=== PATIENT | female | born 2000 | race Caucasian/White ===

== ENCOUNTER 2021-03-20 19:57 | Inpatient (IN) | payer OTHER ==
[~2021-03-20] VITALS: Ht 155 cm; Wt 49.4 kg
--- NOTE | 2021-03-20 20:11 | ED Fall/Injury ---
General Stated Complaint: FALL/HIT HEAD Source: patient History of Present Illness Date Seen by Provider: Mar 20, 2021 Time Seen by Provider: 19:59 Initial Comments PT ARRIVES VIA EMS FROM [facility] TR[facility] PT WAS RUNNING AND FELL, AND LANDED ON HER UPPER ABDOMEN ONTO A STARTING BLOCK--OCCURRED AT 1830 WAS TOLD BY BYSTANDERS THAT SHE HIT HER HEAD, BUT DOES NOT KNOW FOR SURE--SHE DENIES LOSS OF CONSCIOUSNESS AND DENIES HEAD PAIN PT''S ONLY COMPLAINT IS DIFFUSE UPPER ABDOMINAL PAIN--WORSE ON RIGHT NO CHEST PAIN NO SHORTNESS OF BREATH NO NAUSEA/VOMITING/DIARRHEA NO NECK OR BACK PAIN NO PARESTHESIAS OR MOTOR DEFICITS NO HEADACHE NO VISION CHANGES NO DIZZINESS HAS MINOR ABRASION TO RIGHT UPPER ABDOMEN AND RIGHT PALM AND A LACERATION TO LEFT KNEE. DENIES PAIN TO ARMS/HANDS OR LEGS/FEET LAST TETANUS VACCINE > 5 YEARS AGO. NO CHRONIC ILLNESSES PT GOES TO S[place]OL [place], BUT IS FROM [place], [place]/ [place] PARENTS ARE HERE WITH PATIENT Allergies and Home Medications Allergies Coded Allergies: No Known Drug Allergies (Unverified , 03/20/21) Patient Home Medication List Home Medication List Reviewed: Yes Review of Systems Review of Systems Constitutional: no symptoms reported Eyes: No Symptoms Reported Ears, Nose, Mouth, Throat: no symptoms reported Respiratory: no symptoms reported Cardiovascular: no symptoms reported Gastrointestinal: see HPI, abdominal pain Genitourinary: no symptoms reported LMP: Mar 13, 2021 (ON OCP'S) Musculoskeletal: see HPI Skin: see HPI Psychiatric/Neurological: No Symptoms Reported Past Uyqmkjr-Yfpgto-Dhijxr Hx Patient Social History Tobacco Use?: Yes Tobacco type used: Cigarettes Smoking Status: Current Someday Smoker Use of E-Cig and/or Vaping dev: Yes Use of E-Cig and/or Vaping Alejandro: Current Someday User Substance use?: Yes Substance type: Marijuana Alcohol Use?: Yes Alcohol Frequency: Couple times a week Immunizations Up To Date Tetanus Booster (TDap): More than 5yrs Past Medical History Surgeries: No Respiratory: No Cardiac: No Neurological: No : No Reproductive Disorders: No Genitourinary: No Gastrointestinal: No Musculoskeletal: No Endocrine: No HEENT: No Cancer: No Psychosocial: No Integumentary: No Blood Disorders: No Physical Exam Vital Signs Vital Signs - First Documented 03/20/21 19:57 Temp 36.4 Pulse 105 Resp 20 B/P (MAP) 111/74 (86) Pulse Ox 100 O2 Delivery Room Air Capillary Refill : Height, Weight, BMI Height: '" Weight: lbs. oz. kg; BMI Method: General Appearance: WD/WN, no apparent distress HEENT: PERRL/EOMI, normal ENT inspection, TMs normal, pharynx normal, other (NO EXTERNAL EVIDENCE OF TRAUMA TO FACE OR HEAD) Neck: non-tender, full range of motion, supple, normal inspection Cardiovascular: normal peripheral pulses, regular rate, rhythm, no edema, no JVD, no murmur Respiratory: normal breath sounds, no respiratory distress, no accessory muscle use, other (TENDERNESS TO ANTERIOR LOWER RIBS BILATERALLY--RIGHT > LEFT; NO DE FORMITY, NO CREPITANCE OR SUB Q AIR) Gastrointestinal: normal bowel sounds, soft, no organomegaly, no pulsatile mass, tenderness (DIFFUSE UPPER ABDOMINAL TENDERNESS, MOST TENDER IN RUQ. MINOR ABRASION TO RUQ. NO SWELLING OR BRUISING. ) Back: normal inspection, no CVA tenderness, no vertebral tenderness Extremities: normal range of motion, non-tender, no pedal edema, no calf tenderness, normal capillary refill, other (MINOR ABRASIONS TO RIGHT PALM AND LEFT KNEE HAS A 4 CM LACERATION. NO ACTIVE BLEEDING. SOME DEBRIS IN KNEE LACERATION --C/W TRACK SURFACE MATERIAL. ) Neurologic/Psychiatric: sound assistant II-XII nml as tested, no motor/sensory deficits, alert, normal mood/affect, oriented x 3 Skin: normal color (PT IS BLACK), warm/dry, tattoos/piercings (PIERCINGS. ), other (ABRASIONS AND LACERATION NOTED ABOVE) Karla Coma Score Best Eye Response: (4) Open Spontaneously Best Verbal Response: (5) Oriented Best Motor Response: (6) Obeys Commands Karla Total: 15 Procedures/Interventions Other Wound Location LEFT KNEE Wound Length (cm): 4 Wound's Depth, Shape: irregular, sub Q, tendon (SMALL JAJA IN TENDON OVERLYING THE PATELLA. WITH 1 CM LACERATION TO TENDON SHEATH. UNDERLYING BONE APPEARS TO BE GROSSLY INTACT., AND THERE IS NO BONY TENDERNESS. NO BLEEDING FROM WOUND. FULL ROM. NO OBVIOUS LIGAMENT LAXITY. ) Wound Explored: contaminated (LARGE AMOUNT OF TRACK SURFACE MATERIAL) Irrigated w/ Saline (ccs): 500 Betadine Prep?: No (BETASEPT) Anesthesia: Lidocaine w/ Epi (2%) Staple Repair: Stapler 35W (#14) Suture: Vicryl Suture Size: 3-0 Layer Closure?: 2 Number Deep Layer Sutures: 4 Sterile Dressing Applied?: Yes Progress PROFUSELY IRRIGATED WITH STERILE SALINE AND BETASEPT, THEN AGAIN WITH PLAIN SALINE ALL VISIBLE FOREIGN MATERIAL REMOVED. DEEP LAYERS, INCLUDING TENDON SHEATH CLOSED WITH #4 SUTURES OF 3-0 VICRYL SKIN CLOSED WITH #14 STERLING DRESSED WITH BACTROBAN AND STERILE DRESSING. PT TOLERATED WELL. Progress/Results/Core Measures Results/Orders Lab Results Laboratory Tests Test 03/20/21 20:04 03/20/21 20:30 Range/Units White Blood Count 8.9 4.3-11.0 10^3/uL Red Blood Count 4.09 3.80-5.11 10^6/uL Hemoglobin 12.6 11.5-16.0 g/dL Hematocrit 38 35-52 % Mean Corpuscular Volume 93 80-99 fL Mean Corpuscular Hemoglobin 31 25-34 pg Mean Corpuscular Hemoglobin Concent 33 32-36 g/dL Red Cell Distribution Width 13.1 10.0-14.5 % Platelet Count 396 130-400 10^3/uL Mean Platelet Volume 9.9 9.0-12.2 fL Immature Granulocyte % (Auto) 1 % Neutrophils (%) (Auto) 76 H 42-75 % Lymphocytes (%) (Auto) 18 12-44 % Monocytes (%) (Auto) 6 0-12 % Eosinophils (%) (Auto) 0 0-10 % Basophils (%) (Auto) 0 0-10 % Neutrophils # (Auto) 6.8 1.8-7.8 10^3/uL Lymphocytes # (Auto) 1.6 1.0-4.0 10^3/uL Monocytes # (Auto) 0.5 0.0-1.0 10^3/uL Eosinophils # (Auto) 0.0 0.0-0.3 10^3/uL Basophils # (Auto) 0.0 0.0-0.1 10^3/uL Immature Granulocyte # (Auto) 0.1 0.0-0.1 10^3/uL Sodium Level 139 135-145 MMOL/L Potassium Level 3.9 3.6-5.0 MMOL/L Chloride Level 107 98-107 MMOL/L Carbon Dioxide Level 12 L 21-32 MMOL/L Anion Gap 20 H 5-14 MMOL/L Blood Urea Nitrogen 11 7-18 MG/DL Creatinine 1.05 0.60-1.30 MG/DL Estimat Glomerular Filtration Rate 78 BUN/Creatinine Ratio 10 Glucose Level 138 H 70-105 MG/DL Calcium Level 9.2 8.5-10.1 MG/DL Corrected Calcium 9.2 8.5-10.1 MG/DL Total Bilirubin 0.3 0.1-1.0 MG/DL Aspartate Amino Transf (AST/SGOT) 62 H 5-34 U/L Alanine Aminotransferase (ALT/SGPT) 57 H 0-55 U/L Alkaline Phosphatase 72 40-136 U/L Total Protein 8.2 6.4-8.2 GM/DL Albumin 4.0 3.2-4.5 GM/DL Amylase Level 64 25-125 U/L Lipase 14 8-78 U/L Serum Test, Qualitative NEGATIVE NEGATIVE Urine Color YELLOW Urine Clarity CLEAR Urine pH 6.0 5-9 Urine Specific [place] >=1.030 1.016-1.022 Urine Protein 1+ H NEGATIVE Urine Glucose (UA) NEGATIVE NEGATIVE Urine Ketones NEGATIVE NEGATIVE Urine Nitrite NEGATIVE NEGATIVE Urine Bilirubin NEGATIVE NEGATIVE Urine Urobilinogen 0.2 < = 1.0 MG/DL Urine Leukocyte Esterase NEGATIVE NEGATIVE Urine RBC (Auto) TRACE-I H NEGATIVE Urine RBC RARE /HPF Urine WBC NONE /HPF Urine Squamous Epithelial Cells 2-5 /HPF Urine Crystals NONE /LPF Urine Bacteria TRACE /HPF Urine Casts NONE /LPF Urine Mucus SMALL H /LPF Urine Culture Indicated NO My Orders Orders - AIDA SHETH DO Ed Iv/Invasive Line Start (03/20/21 20:03) Monitor-Rhythm Ecg Trace Only (03/20/21 20:03) Amylase (03/20/21 20:03) Cbc With Automated Diff (03/20/21 20:03) Comprehensive Metabolic Panel (03/20/21 20:03) Hcg,Qualitative Serum (03/20/21 20:03) Lipase (03/20/21 20:03) Ua Culture If Indicated (03/20/21 20:03) Dipht,Pertuss(Acell),Tet Adult (Boostrix (03/20/21 20:15) Ct Chest/Abdomen/Pelvis W (03/20/21 20:03) Iohexol Injection (Omnipaque 350 Mg/Ml 1 (03/20/21 21:00) Received Contrast (Hold Metformin- Contr (03/20/21 21:00) Ns (Ivpb) (Sodium Chloride 0.9% Ivpb Bag (03/20/21 21:00) Fentanyl Inj (Sublimaze Injection) (03/20/21 21:30) Lidocaine/Epi 2% 1:100,000 (Xylocaine/Ep (03/20/21 22:15) Medications Given in ED Current Medications Medications Dose Ordered Sig/Adriano Route Start Time Stop Time Status Last Admin Dose Admin Diphtheria/ Tetanus/Acell Pertussis 0.5 ml ONCE ONCE IM 03/20/21 20:15 03/20/21 20:16 DC 03/20/21 20:27 0.5 ML Fentanyl Citrate 50 mcg ONCE ONCE IVP 03/20/21 21:30 03/20/21 21:34 DC 03/20/21 21:23 50 MCG Iohexol 100 ml ONCE ONCE IV 03/20/21 21:00 03/20/21 21:01 DC 03/20/21 21:00 66 ML Lidocaine/ Epinephrine 20 ml ONCE ONCE INJ 03/20/21 22:15 03/20/21 22:16 DC 03/20/21 22:10 20 ML Sodium Chloride 100 ml ONCE ONCE IV 03/20/21 21:00 03/20/21 21:01 DC 03/20/21 21:00 80 ML Vital Signs/I&O 03/20/21 19:57 Temp 36.4 Pulse 105 Resp 20 B/P (MAP) 111/74 (86) Pulse Ox 100 O2 Delivery Room Air Progress Progress Note : Progress Note PT CRYING IN PAIN TO RUQ ON RETURN FROM CT. GIVEN FENTANYL FOR PAIN WITH MUCH IMPROVEMENT UNEVENTFUL ER STAY VITALS STABLE--NO HYPOTENSION OR TACHYCARDIA OR HYPOXIA Diagnostic Imaging Comments CT CHEST/ABDOMEN/PELVIS--PER RADIOLOGIST VIA PHONE AT 1458 FINDINGS: Thyroid: The visualized thyroid gland is normal. Mediastinum: Heart size is normal without significant pericardial effusion. The aorta is normal in caliber. No suspicious lymphadenopathy. Lungs and airways: The lungs are clear without consolidation, pleural effusion or pneumothorax. The airways are normal. Solid organs: Ill-defined area of hypoattenuation within the inferior right hepatic lobe measuring up to 2.0 x 3.2 cm (series 2 image 30). Appearance is similar on the delayed images. The gallbladder is normal. There is no biliary ductal dilation. Pancreas is normal. Spleen is normal. Adrenal glands are normal. The kidneys are normal without hydronephrosis. Bowel: The stomach and small bowel are normal without obstruction. The colon is unremarkable. No findings of acute appendicitis Peritoneum: There is no intraperitoneal free fluid or free air. No suspicious lymphadenopathy. Vasculature: Normal without aneurysm. Musculoskeletal: No suspicious osseous lesion or compression fracture. Pelvis: The uterus and adnexa are normal. The urinary bladder is normal. IMPRESSION: 1. No acute abnormality in the chest, abdomen, or pelvis. 2. Indeterminate right hepatic lesion measuring 2.0 x 3.2 cm. Consider further evaluation with dedicated MRI of the liver with Gadavist IV contrast. Of note, no intraperitoneal hemorrhage is seen to suggest or confirm hepatic laceration. Recommend appropriate follow-up and evaluation of laboratory values if there is concern for hepatic laceration. CXR--NO ACUTE PROCESS, PENDING RADIOLOGIST REVIEW XRAYS LEFT KNEE--NO ACUTE BONY INJURY, PENDING RADIOLOGIST REVIEW Reviewed: Reviewed by Me, Discussed w/Radiologist Departure Communication (Admissions) 2129--SPOKE WITH DR. KIRBY, HE WILL REVIEW FILMS AND CALL BACK. HE WILL ALSO DISCUSS WITH RADIOLOGIST 2153--CALLED DR. KIRBY, WILL CALL BACK. [id number]--SPOKE WITH DR. KIRBY, HE HAS DISCUSSED WITH DR. CASTELLANOS. WILL ADMIT PT TO DR. CASTELLANOS, WHO WILL SEE PT IN AM. Impression Primary Impression: Fall injury while running Additional Impressions: Liver laceration Complex left knee laceration Abrasion of palm of right hand Hzlzlxdlom-[id number]-pflrdrt (DPT) vaccination administered at current visit Disposition: ADMITTED INPATIENT Condition: Stable Admissions Decision to Admit Reason: Admit from ER (Trauma) Decision to Admit/Date: Mar 20, 2021 Time/Decision to Admit Time: 22:15 Departure-Patient Inst. Referrals: NO,LOCAL PHYSICIAN (PCP/Family) Primary Care Physician AIDA SHETH DO Mar 20, 2021 20:11
[2021-03-20 20:13] LABS: BASOPHILS % (AUTO) 0 % (0-10); EOSINOPHILS % (AUTO) 0 % (0-10); HEMATOCRIT 38 % (35-52); HEMOGLOBIN 12.6 g/dL (11.5-16.0); LYMPHOCYTES # (AUTO) 1.6 10^3/uL (1.0-4.0); LYMPHOCYTES % (AUTO) 18 % (12-44); MEAN CORPUSCULAR HEMOGLOBIN 31 pg (25-34); MEAN CORPUSCULAR HGB CONC 33 g/dL (32-36); MEAN CORPUSCULAR VOLUME 93 fL (80-99); MEAN PLATELET VOLUME 9.9 fL (9.0-12.2); MONOCYTES # (AUTO) 0.5 10^3/uL (0.0-1.0); MONOCYTES % (AUTO) 6 % (0-12); NEUTROPHILS # (AUTO) 6.8 10^3/uL (1.8-7.8); NEUTROPHILS % (AUTO) 76 % (42-75); PLATELET COUNT 396 10^3/uL (130-400); WHITE BLOOD COUNT 8.9 10^3/uL (4.3-11.0)
[2021-03-20] MEDS ORDERED: TETANUS,DIPTH,PERTUSS P/F (BOOSTRIX) 0.5 ML VIAL IM ONE (20:15)
[2021-03-20 20:33] LABS: BILIRUBIN,TOTAL 0.3 MG/DL (0.1-1.0); CALCIUM 9.2 MG/DL (8.5-10.1); CREATININE SERUM 1.05 MG/DL (0.60-1.30); POTASSIUM 3.9 MMOL/L (3.6-5.0); TOTAL PROTEIN 8.2 GM/DL (6.4-8.2)
[2021-03-20 20:37] LABS: BILIRUBIN,URINE NEGATIVE (NEGATIVE); CLARITY,URINE CLEAR; COLOR,URINE YELLOW; GLUCOSE, URINE (UA) NEGATIVE (NEGATIVE); KETONES,URINE NEGATIVE (NEGATIVE); LEUKOCYTE ESTERASE ,URINE NEGATIVE (NEGATIVE); NITRITE,URINE NEGATIVE (NEGATIVE); PROTEIN,URINE 1+ (NEGATIVE)
[2021-03-20 20:43] LABS: BACTERIA,URINE TRACE /HPF; RBC,URINE RARE /HPF
[2021-03-20] MEDS ORDERED: NS 100 ML (IVPB) BAG IV ONE (21:00)
[2021-03-20] MEDS ORDERED: HOLD METFORMIN - RECEIVED CONTRAST 20 ML VIAL IV SCH (21:00)
[2021-03-20] MEDS ORDERED: IOHEXOL 350 MG/ML 100 ML (OMNIPAQUE 350) VIAL IV ONE (21:00)
--- NOTE | 2021-03-20 21:20 | Diagnostic Imaging Report ---
EXAMINATION: CT chest, abdomen and pelvis with intravenous contrast. TECHNIQUE: Multiple contiguous axial images were obtained through the chest, abdomen and pelvis after the uneventful administration of intravenous contrast. All CT scans use one or more of the following dose optimizing techniques: automated exposure control, MA and/or KvP adjustment based on patient size and exam type or iterative reconstruction. HISTORY: Chest and abdomen pain after fall. COMPARISON: None available. FINDINGS: Thyroid: The visualized thyroid gland is normal. Mediastinum: Heart size is normal without significant pericardial effusion. The aorta is normal in caliber. No suspicious lymphadenopathy. Lungs and airways: The lungs are clear without consolidation, pleural effusion or pneumothorax. The airways are normal. Solid organs: Ill-defined area of hypoattenuation within the inferior right hepatic lobe measuring up to 2.0 x 3.2 cm (series 2 image 30). Appearance is similar on the delayed images. The gallbladder is normal. There is no biliary ductal dilation. Pancreas is normal. Spleen is normal. Adrenal glands are normal. The kidneys are normal without hydronephrosis. Bowel: The stomach and small bowel are normal without obstruction. The colon is unremarkable. No findings of acute appendicitis Peritoneum: There is no intraperitoneal free fluid or free air. No suspicious lymphadenopathy. Vasculature: Normal without aneurysm. Musculoskeletal: No suspicious osseous lesion or compression fracture. Pelvis: The uterus and adnexa are normal. The urinary bladder is normal. IMPRESSION: 1. No acute abnormality in the chest, abdomen, or pelvis. 2. Indeterminate right hepatic lesion measuring 2.0 x 3.2 cm. Consider further evaluation with dedicated MRI of the liver with Gadavist IV contrast. Of note, no intraperitoneal hemorrhage is seen to suggest or confirm hepatic laceration. Recommend appropriate follow-up and evaluation of laboratory values if there is concern for hepatic laceration. Findings communicated with Dr. Pagan by Dr. Juan Antonio Mckeon at 9:14 PM on 03/20/2021. Dictated by: Dictated on workstation # [id number]
[2021-03-20] MEDS ORDERED: fentaNYL INJ 100 MCG/2 ML AMP IVP ONE (21:30)
[2021-03-20] MEDS ORDERED: LIDOCAINE/EPI 2% 1:100,00 (XYLOCAINE) 20 ML VIAL INJ ONE (22:15)
[2021-03-20] MEDS ORDERED: ceFAZolin INJECTION 1,000 MG in NS (IVPB) 50 ML IV STA (22:47)
[2021-03-20] MEDS ORDERED: MUPIROCIN 2% OINT 22 GM (BACTROBAN) TUBE ONE (23:10)
[2021-03-20] MEDS ORDERED: ACETAMINOPHEN 500 MG TAB (TYLENOL) PO ONE (23:15)
[2021-03-20] MEDS: MUPIROCIN 2% OINT 22 GM (BACTROBAN) TUBE TOP SCH (23:16)
[2021-03-20 23:42] VITALS: BP 118/58
[2021-03-21] MEDS: D5 1/2 NS W/KCL 20 MEQ/L 1,000 ML IV SCH ×4 (00:07→20:36)
[2021-03-21 00:23] LABS: HEMOGLOBIN 11.6 g/dL (11.5-16.0)
[2021-03-21 04:06] VITALS: BP 106/68
[2021-03-21] MEDS: ceFAZolin INJECTION 1,000 MG VIAL IV SCH ×4 (04:42→21:13)
[2021-03-21] MEDS: fentaNYL INJ 100 MCG/2 ML AMP IV PRN ×4 (06:06→20:36)
[2021-03-21 06:15] LABS: BASOPHILS % (AUTO) 0 % (0-10); EOSINOPHILS % (AUTO) 0 % (0-10); HEMATOCRIT 32 % (35-52); LYMPHOCYTES # (AUTO) 4.1 10^3/uL (1.0-4.0); LYMPHOCYTES % (AUTO) 40 % (12-44); MEAN CORPUSCULAR HEMOGLOBIN 31 pg (25-34); MEAN CORPUSCULAR HGB CONC 34 g/dL (32-36); MEAN CORPUSCULAR VOLUME 91 fL (80-99); MEAN PLATELET VOLUME 10.2 fL (9.0-12.2); MONOCYTES # (AUTO) 0.8 10^3/uL (0.0-1.0); MONOCYTES % (AUTO) 7 % (0-12); NEUTROPHILS # (AUTO) 5.3 10^3/uL (1.8-7.8); NEUTROPHILS % (AUTO) 52 % (42-75); PLATELET COUNT 326 10^3/uL (130-400); WHITE BLOOD COUNT 10.3 10^3/uL (4.3-11.0)
[2021-03-21 06:27] LABS: POTASSIUM 3.1 MMOL/L (3.6-5.0)
[2021-03-21 06:29] LABS: CALCIUM 8.1 MG/DL (8.5-10.1)
[2021-03-21 06:33] LABS: CREATININE SERUM 0.78 MG/DL (0.60-1.30)
[2021-03-21] MEDS: HYDROcodone/APAP 5 MG/325 MG (LORTAB) TAB PO PRN ×3 (06:49→17:27)
--- NOTE | 2021-03-21 06:49 | Diagnostic Imaging Report ---
CLINICAL INDICATIONS: Patient fell while running track. EXAM: X-ray left knee, 3 views. COMPARISON: None. FINDINGS: There is no acute fracture or dislocation. There is prepatellar soft tissue swelling. Skin jaya are seen overlying the anterior aspect of the knee. There is no knee effusion. IMPRESSION: 1: There is no acute fracture or dislocation. 2: There is soft tissue swelling in the prepatellar region. Dictated by: Dictated on workstation # [id number]
--- NOTE | 2021-03-21 07:33 | Diagnostic Imaging Report ---
CLINICAL INDICATIONS: Patient fell while running track. EXAM: Portable chest x-ray upright view. COMPARISON: None. FINDINGS: Lungs/pleura: Lungs are clear. There is no pneumothorax. There is no pleural effusion. Mediastinum: Unremarkable. Pulmonary vasculature: Unremarkable. Heart: Unremarkable. Bones/extrathoracic soft tissue: Unremarkable. IMPRESSION: There is no radiographic evidence of acute cardiopulmonary process. Dictated by: Dictated on workstation # [id number]
[2021-03-21 08:20] VITALS: BP 116/75
--- NOTE | 2021-03-21 10:42 | Consultation - Surgery ---
BOB BARBOSA 03/21/21 1042: History of Present Illness History of Present Illness Patient Consulted On(bharathi/time) 03/21/21 10:37 Date Seen by Provider: Mar 21, 2021 Time Seen by Provider: 10:15 History of Present Illness 21yo female presents to the ER after running on the track field yesterday afternoon and tripped over the median which caused her to fall on her stomach and face. She doesn't recall hitting her head, but bystanders report that she hit her head. She denies any symptoms including syncope or LOC before the fall took place. She rates the pain of both her left knee and stomach as a 0\10, but 6 or 7/10 for her stomach and 9/10 for her left knee before being started on pain medications. Resting makes her pain better, and moving makes it worse. When the pain first started she described her RUQ as a stabbing pain that was constant and denied any other symptoms or radiation. Her knee pain is described as a burning pain that is constant and extends above the site of injury but not below the site. She denies this every happening to her before, N/V, fever, or LOC. She also reports having a headache for 3 hours last night that went away with tylenol and it has not returned. CT Scan of Chest/Abdomin/Pelvis: Indeterminate right hepatic lesion measuring 2.0 x 3.2 cm. CXR: There is no radiographic evidence of acute cardiopulmonary process. Left Knee x ray: There is no acute fracture or dislocation. There is soft tissue swelling in the prepatellar region. Allergies and Home Medications Allergies Coded Allergies: No Known Drug Allergies (Unverified , 03/20/21) Past Rdfnrup-Ugtfuo-Xgfqhu Hx Patient Social History Smoking Status: Never a Smoker Alcohol Use?: No Substance type: Marijuana (twice a week for a year, last use one month ago) Have you traveled recently?: Yes Immunizations Up To Date Tetanus Booster (TDap): More than 5yrs Surgeries History of Surgeries: No Respiratory History of Respiratory Disorde: No Cardiovascular History of Cardiac Disorders: No Neurological History of Neurological Disord: No Reproductive System : No Hx Reproductive Disorders: No Genitourinary History of Genitourinary Disor: No Gastrointestinal History of Gastrointestinal Di: No Musculoskeletal History of Musculoskeletal Dis: No Endocrine History of Endocrine Disorders: No HEENT History of HEENT Disorders: No Cancer History of Cancer: No Psychosocial History of Psychiatric Problem: No Integumentary History of Skin or Integumenta: No Blood Transfusions History of Blood Disorders: No Family Medical History Significant Family History: Cancer (grandpather had breast cancer ) Review of Systems-General Constitutional: No dizziness, No fever; weakness EENTM: No blurred vision, No double vision, No vision loss Respiratory: No short of breath, No wheezing Cardiovascular: No chest pain, No palpitations Gastrointestinal: RUQ; No constipation, No diarrhea, No nausea, No vomiting Genitourinary: No dysuria, No hematuria Musculoskeletal: back pain; No neck pain Psychiatric/Neurological: Denies Anxiety, Denies Depressed Physical Exam-General Problems Physical Exam Vital Signs Vital Signs - First Documented 03/20/21 19:57 Temp 36.4 Pulse 105 Resp 20 B/P (MAP) 111/74 (86) Pulse Ox 100 O2 Delivery Room Air Capillary Refill : Less Than 3 Seconds General Appearance: no apparent distress Respiratory: lungs clear, no respiratory distress, no accessory muscle use Cardiovascular: regular rate, rhythm, no murmur Gastrointestinal: normal bowel sounds, tenderness (RUQ), other (darkening of skin on RUQ due to site of trauma ) Extremities: no pedal edema, other (left knee is wrapped from injury ) Neurologic/Psychiatric: alert, oriented x 3 Skin: warm/dry, other (LE B/L has no edema with normal pulses ) Lymphatic: no adenopathy Data Review Labs Laboratory Tests 03/20/21 20:04: White Blood Count 8.9, Red Blood Count 4.09, Hemoglobin 12.6, Hematocrit 38, Mean Corpuscular Volume 93, Mean Corpuscular Hemoglobin 31, Mean Corpuscular Hemoglobin Concent 33, Red Cell Distribution Width 13.1, Platelet Count 396, Mean Platelet Volume 9.9, Immature Granulocyte % (Auto) 1, Neutrophils (%) (Auto) 76H, Lymphocytes (%) (Auto) 18, Monocytes (%) (Auto) 6, Eosinophils (%) (Auto) 0, Basophils (%) (Auto) 0, Neutrophils # (Auto) 6.8, Lymphocytes # (Auto) 1.6, Monocytes # (Auto) 0.5, Eosinophils # (Auto) 0.0, Basophils # (Auto) 0.0, Immature Granulocyte # (Auto) 0.1, Sodium Level 139, Potassium Level 3.9, Chloride Level 107, Carbon Dioxide Level 12L, Anion Gap 20H, Blood Urea Nitrogen 11, Creatinine 1.05, Estimat Glomerular Filtration Rate 78, BUN/Creatinine Ratio 10, Glucose Level 138H, Calcium Level 9.2, Corrected Calcium 9.2, Total Bilirubin 0.3, Aspartate Amino Transf (AST/SGOT) 62H, Alanine Aminotransferase (ALT/SGPT) 57H, Alkaline Phosphatase 72, Total Protein 8.2, Albumin 4.0, Amylase Level 64, Lipase 14, Serum Test, Qualitative NEGATIVE 03/20/21 20:30: Urine Color YELLOW, Urine Clarity CLEAR, Urine pH 6.0, Urine Specific [place] >=1.030, Urine Protein 1+H, Urine Glucose (UA) NEGATIVE, Urine Ketones NEGATIVE, Urine Nitrite NEGATIVE, Urine Bilirubin NEGATIVE, Urine Urobilinogen 0.2, Urine Leukocyte Esterase NEGATIVE, Urine RBC (Auto) TRACE-IH, Urine RBC RARE, Urine WBC NONE, Urine Squamous Epithelial Cells 2-5, Urine Crystals NONE, Urine Bacteria TRACE, Urine Casts NONE, Urine Mucus SMALLH, Urine Culture Indicated NO 03/21/21 00:15: Hemoglobin 11.6, Hematocrit 34L 03/21/21 05:35: White Blood Count 10.3, Red Blood Count 3.51L, Hemoglobin 11.0L, Hematocrit 32L, Mean Corpuscular Volume 91, Mean Corpuscular Hemoglobin 31, Mean Corpuscular Hemoglobin Concent 34, Red Cell Distribution Width 13.0, Platelet Count 326, Mean Platelet Volume 10.2, Immature Granulocyte % (Auto) 0, Neutrophils (%) (Auto) 52, Lymphocytes (%) (Auto) 40, Monocytes (%) (Auto) 7, Eosinophils (%) (Auto) 0, Basophils (%) (Auto) 0, Neutrophils # (Auto) 5.3, Lymphocytes # (Auto) 4.1H, Monocytes # (Auto) 0.8, Eosinophils # (Auto) 0.0, Basophils # (Auto) 0.0, Immature Granulocyte # (Auto) 0.0, Sodium Level 136, Potassium Level 3.1L, Chloride Level 106, Carbon Dioxide Level 20L, Anion Gap 10, Blood Urea Nitrogen 8, Creatinine 0.78, Estimat Glomerular Filtration Rate 111, BUN/Creatinine Ratio 10, Glucose Level 108H, Calcium Level 8.1L 03/21/21 08:00: Hemoglobin 12.0, Hematocrit 36 Assessment/Plan Assessment/Plan Assessment/Plan RUQ Pain Continue IV fluids, pain medications, repeat CBC with diff and liver panel as AST and ALT are elevated at 62 and 57 respectively Left knee Pain Consult Orthopedic Surgery Headache Resolved with tylenol, monitor for signs of concussion EDEN WANG DO 03/21/21 1308: History of Present Illness History of Present Illness History of Present Illness HISTORY AND PHYSICAL CC:fall Patient is a 21 year old female. Running in [employer] when tripped over a rail striking right upper abdomen on blocks. She had left knee laceration and right hand abrasion. Patient may have hit her head on ground, but had no loss of consciousness. She has pain in the left knee which she states is where all her pain is now. Before pain medication she was rating it at a 9/10. Currently pain is undercontrol, but unable to move it due to pain. She is not having any abdominal pain at this time. Her hgb is stable. She had x rays of chest which was normal. Left knee x rays normal. Ct chest abdomen and pelvis with indeterminate right hepatic lesion. Allergies and Home Medications Allergies Coded Allergies: No Known Drug Allergies (Unverified , 03/20/21) Patient Home Medication List Home Medication List Reviewed: Yes Past Wekzuoq-Qoaytp-Tuelaj Hx Patient Social History Smoking Status: Never a Smoker Substance type: Marijuana (twice a week for a year, last use one month ago) Surgeries History of Surgeries: No Respiratory History of Respiratory Disorde: No Cardiovascular History of Cardiac Disorders: No Neurological History of Neurological Disord: No Reproductive System : No Genitourinary History of Genitourinary Disor: No Gastrointestinal History of Gastrointestinal Di: No Musculoskeletal History of Musculoskeletal Dis: No Endocrine History of Endocrine Disorders: No HEENT History of HEENT Disorders: No Cancer History of Cancer: No Integumentary History of Skin or Integumenta: No Blood Transfusions History of Blood Disorders: No Reviewed Nursing Assessment Reviewed/Agree w Nursing PMH: Yes Family Medical History Significant Family History: Cancer (grandmother had breast cancer ) Review of Systems-General Constitutional: No dizziness, No fever; weakness (left leg (knee)) EENTM: No blurred vision, No double vision, No vision loss Respiratory: No short of breath, No wheezing Cardiovascular: No palpitations Gastrointestinal: RUQ, abdominal pain (RUQ); No constipation, No diarrhea, No nausea, No vomiting Genitourinary: No dysuria, No hematuria Musculoskeletal: back pain; No neck pain Skin: other (left knee laceration/right hand abrasion) Psychiatric/Neurological: Denies Anxiety, Denies Depressed, Denies Emotional Problems All Other Systems Reviewed Negative Unless Noted: Yes (Negative excepted noted.) Physical Exam-General Problems Physical Exam General Appearance: WD/WN, no apparent distress HEENT: PERRL/EOMI, normal ENT inspection Neck: non-tender, supple Respiratory: chest non-tender, no respiratory distress, no accessory muscle use Cardiovascular: regular rate, rhythm, no JVD Gastrointestinal: non tender, soft, tenderness (RUQ minimal), other (darkening of skin on RUQ due to site of trauma ) Rectal: deferred Back: normal inspection, no CVA tenderness Extremities: no pedal edema, other (left knee laceration, difficulty moving left knee, has weakness secondary to pain ) Neurologic/Psychiatric: alert, normal mood/affect, oriented x 3 Skin: warm/dry, other (LE B/L has no edema with normal pulses ) Lymphatic: no adenopathy Assessment/Plan Assessment/Plan Assessment/Plan fall from standing height right hepatic lesion, indeterminate cause ? liver laceration Left knee laceration and pain Right hand abrasion Has been NPO, Hgb serially checked and stable. Bedrest, will start on clears. Will get MRI of the liver with Gadavist IV contrast tomorrow (not available today) Pain control Follow hgb. Ortho consulted Inpatient Admission: Patient will be here 2 midnight. Needs monitored for hemodynamic stability and further radiological studies for liver lesion. Supervisory-Addendum Brief Verification & Attestation Participated in pt care: history, MDM, physical Personally performed: exam, history, MDM, supervision of care Care discussed with: Medical Student Procedures: n/a Results interpretation: Verified all documentation Verification and Attestation of Medical Student E/M Service A medical student performed and documented this service in my presence. I reviewed and verified all information documented by the medical student and made modifications to such information, when appropriate. I personally performed the physical exam and medical decision making. Eden Wang, Mar 21, 2021,13:19 BOB BARBOSA Mar 21, 2021 10:42 EDEN WANG DO Mar 21, 2021 13:08
[2021-03-21 11:20] VITALS: BP 127/81
[2021-03-21 12:15] LABS: HEMOGLOBIN 11.1 g/dL (11.5-16.0)
[2021-03-21 16:00] VITALS: BP 115/71
[2021-03-21 17:07] LABS: HEMOGLOBIN 10.4 g/dL (11.5-16.0)
[2021-03-21 19:56] VITALS: BP 113/76
[2021-03-21 20:30] LABS: HEMOGLOBIN 10.2 g/dL (11.5-16.0)
[2021-03-21] MEDS: MUPIROCIN 2% OINT 22 GM (BACTROBAN) TUBE TOP SCH (20:37)
[2021-03-22] VITALS: BP 128/77
[2021-03-22] MEDS: HYDROcodone/APAP 5 MG/325 MG (LORTAB) TAB PO PRN ×3 (00:08→12:24)
[2021-03-22 00:23] LABS: HEMOGLOBIN 10.3 g/dL (11.5-16.0)
[2021-03-22 04:00] VITALS: BP 120/60
[2021-03-22] MEDS: D5 1/2 NS W/KCL 20 MEQ/L 1,000 ML IV SCH ×3 (04:23→10:37)
[2021-03-22] MEDS: ceFAZolin INJECTION 1,000 MG VIAL IV SCH ×2 (04:23→10:37)
[2021-03-22 04:32] LABS: HEMOGLOBIN 10.2 g/dL (11.5-16.0)
--- NOTE | 2021-03-22 06:22 | Progress Note - Surgery ---
MARIA M UMANZOR 03/22/21 0622: Subjective Date Seen by a Provider: Mar 22, 2021 Time Seen by a Provider: 06:00 Subjective/Events-last exam Pt reports 6/10 pain in L knee, but no abdominal pain today. Pt does report new pain along spine in central back and an intermittent WOLFF (4/10). Pt's R palm abrasion was freshly bandaged. Pt currently NPO. Last bm was Monday. Pt denies CP, SOB, fever, and N/V at this time. Review of Systems General: No Chills; Fatigue HEENT: Head Aches (intermittent 4/10) Pulmonary: No Dyspnea, No Cough Cardiovascular: No: Chest Pain, Palpitations Gastrointestinal: No: Nausea, Vomiting Genitourinary: No Dysuria, No Incontinence Musculoskeletal: back pain (central back along spine), leg pain (L knee) Neurological: No: Weakness, Change in speech Focused Exam Respiratory: Lungs Clear, Normal Breath Sounds, No Respiratory Distress Cardiovascular: Regular Rate, Rhythm, No Murmur Peripheral Pulses: 2+ Radial Pulses (R), 2+ Radial Pulses (L) Skin: normal color, warm/dry Objective Exam Vital Signs Date Time Temp Pulse Resp B/P (MAP) Pulse Ox O2 Delivery O2 Flow Rate FiO2 03/22/21 04:00 36.8 77 18 120/60 (80) 100 Room Air 03/22/21 01:00 78 03/22/21 00:00 37.7 71 17 128/77 (94) 100 Room Air 03/21/21 20:36 Room Air 03/21/21 19:56 36.8 73 18 113/76 (88) 100 Room Air 03/21/21 19:00 80 03/21/21 16:00 36.6 85 20 115/71 (86) 100 Room Air 03/21/21 13:00 76 03/21/21 11:20 37.3 80 18 127/81 (96) 100 Room Air 03/21/21 08:20 37.2 72 16 116/75 (89) 97 Room Air 03/21/21 07:00 90 I & O 03/22/21 07:00 Intake Total 1120 ml Balance 1120 ml Capillary Refill : Less Than 3 Seconds General Appearance: No Apparent Distress, WD/WN HEENT: PERRL/EOMI Neck: Normal Inspection Respiratory: Lungs Clear, Normal Breath Sounds, No Respiratory Distress Cardiovascular: Regular Rate, Rhythm, No Murmur Peripheral Pulses: 2+ Dorsalis Pedis (R), 2+ Left Dors-Pedis (L), 2+ Radial P ulses (R), 2+ Radial Pulses (L) Gastrointestinal: non tender, soft, other (darkening of skin on RUQ due to site of trauma; small abrasion) Extremity: No Pedal Edema Neurologic/Psychiatric: Alert, Oriented x3, Normal Mood/Affect Skin: Normal Color, Warm/Dry Results Lab Laboratory Tests 03/21/21 08:00: Hemoglobin 12.0, Hematocrit 36 03/21/21 12:05: Hemoglobin 11.1L, Hematocrit 33L 03/21/21 16:54: Hemoglobin 10.4L, Hematocrit 31L 03/21/21 20:09: Hemoglobin 10.2L, Hematocrit 30L 03/22/21 00:17: Hemoglobin 10.3L, Hematocrit 31L 03/22/21 04:05: Hemoglobin 10.2L, Hematocrit 30L Assessment/Plan Assessment/Plan Assessment/Plan Fall from standing height Right hepatic lesion, indeterminate cause- liver laceration Left knee laceration and pain Right hand abrasion Back pain WOLFF NPO; MRI w/ Gadavist IV contrast today Pain control Follow hgb- serially checked and stable Ortho consulted Monitor for concussion EDEN Gómez DO 03/22/21 1325: Subjective Subjective/Events-last exam Patient with left knee pain. States 6/10 pain. Now able to move it much better. No headache at this time. Ortho has seen and given recommendations which she understood. Patient for MRI today. Patient hgb stable. Denies any new complaints. No abdominal pain. Denies n/v fever sweats chills shortness of breath or chest pain. Objective Exam General Appearance: No Apparent Distress, WD/WN HEENT: PERRL/EOMI Neck: Normal Inspection, Non Tender Respiratory: Chest Non Tender, No Accessory Muscle Use, No Respiratory Distress Cardiovascular: Regular Rate, Rhythm, No JVD Gastrointestinal: non tender, soft, other (darkening of skin on RUQ due to site of trauma; small abrasion) Extremity: Other (laceration left knee with jaya, no signs of infection, abrasion right hand. Left leg with good range of motion today.) Neurologic/Psychiatric: Alert, Oriented x3, Normal Mood/Affect Skin: Normal Color, Warm/Dry Lymphatic: No Adenopathy Assessment/Plan Assessment/Plan Assessment/Plan Right hepatic lesion, indeterminate cause- liver laceration Left knee laceration and pain Right hand abrasion Back pain WOLFF MRI w/ Gadavist IV contrast today- consistent with stable liver laceration Pain control Follow hgb- serially checked and stable Ortho consulted who gave recommendations and patient understands. Patient will need repeat liver imaging in 1-2 weeks or earlier if becomes symptomatic. Can be discharged today with follow up with per physician back home. Supervisory-Addendum Brief Verification & Attestation Participated in pt care: history, MDM, physical Personally performed: exam, history, MDM, supervision of care Care discussed with: Medical Student Procedures: n/a Results interpretation: Verified all documentation Verification and Attestation of Medical Student E/M Service A medical student performed and documented this service in my presence. I reviewed and verified all information documented by the medical student and made modifications to such information, when appropriate. I personally performed the physical exam and medical decision making. Eden Castellanos, Mar 22, 2021,13:25 MARIA M UMANZOR Mar 22, 2021 06:22 EDEN CASTELLANOS DO Mar 22, 2021 13:25
[2021-03-22 07:55] VITALS: BP 116/57
--- NOTE | 2021-03-22 07:57 | Progress Note ---
Standard Progress Note Progress Notes/Assess & Plan Date Seen by a Provider: Mar 22, 2021 Time Seen by a Provider: 07:57 Progress/Assessment & Plan consult dictated no evidence of structural damage WBAT ROM FU with home physician DORIE MALHOTRA MD Mar 22, 2021 07:57
[2021-03-22 08:14] LABS: HEMOGLOBIN 10.7 g/dL (11.5-16.0)
[2021-03-22] MEDS: MUPIROCIN 2% OINT 22 GM (BACTROBAN) TUBE TOP SCH (09:23)
--- NOTE | 2021-03-22 11:21 | CONSULTATION REPORT ---
DATE OF SERVICE: INPATIENT CONSULTATION REASON FOR CONSULTATION: Left knee laceration. 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 She has been admitted for observation for her liver injury. I was asked to see the patient for her knee. Today, she denies appreciable pain in the knee. PHYSICAL EXAMINATION: She can perform a straight leg raise without difficulty. She has active flexion to 90 degrees. Her laceration is well approximated and this crescent-shaped over the superior aspect of her patella. There is no gross effusion noted. There is no erythema or warmth. IMPRESSION: Left knee laceration without evidence of extensor mechanism disruption. PLAN: Recommend working on range of motion, quad sets and progressive activities as symptoms allow. She can weightbear as tolerated. She should follow up with her physician at home. Job ID: [id number] DocumentID: [id number] Dictated Date: 03/22/2021 07:56:59 Blow Mold Machine Operator Date: 03/22/2021 11:20:44 Dictated By: DORIE MALHOTRA MD
[2021-03-22 11:44] VITALS: BP 117/75
[2021-03-22] MEDS ORDERED: GADOBUTROL 15 MMOL/15 ML (GADAVIST) VIAL IV ONE (12:00)
[2021-03-22 12:39] LABS: HEMOGLOBIN 11.4 g/dL (11.5-16.0)
[2021-03-22] MEDS ORDERED: VITAMIN B12 GUMMIES PO (12:43)
[2021-03-22] MEDS ORDERED: NORE1TAB95 PO (12:43)
--- NOTE | 2021-03-22 12:43 | Diagnostic Imaging Report ---
PROCEDURE: MR imaging abdomen with and without contrast. TECHNIQUE: Multiplanar, multisequence MR imaging of the abdomen was performed with and without contrast. INDICATION: Injury, right upper quadrant pain. There are no prior MRI examinations available for comparison. The recent CT chest, abdomen and pelvis exam performed on 03/20/2021 did note a 2.0 x 3.2 cm area of diminished density within the right lobe of the liver. This was of uncertain etiology. On this exam there is a similar-appearing, similar-sized area of diminished signal in this region on the postcontrast series. There is no significant enhancement of this area to suggest neoplastic disease. By history patient has suffered blunt trauma to this region, and I suspect that the area of altered signal within the right lobe of liver is related to hemorrhage or hematoma formation. There is also mild edema of the adjacent liver parenchyma. There is no other abnormal signal arising from the abdomen to suggest an acute abnormality. The lung bases where visualized are clear. IMPRESSION: The area of diminished density in the right lobe of the liver seen on the recent CT abdomen exam is again evident and does not appear to have changed significantly. There is no abnormal enhancement to suggest that this is neoplastic in nature and this could be a sequela of recent trauma. If further evaluation is desired, then ultrasound would be recommended. If the ultrasound exam is not performed, then a short-term (1-2 week) CT abdomen/pelvis exam should be obtained. These results were discussed Dr. Wang. Dictated by: Dictated on workstation # [id number]
--- NOTE | 2021-03-22 13:37 | Discharge Inst-Simple/Standard ---
Discharge Inst-Standard Patient Instructions/Follow Up Plan of Care/Instructions/FU: Follow up with your doctor in 12-14 days for jaya to be removed. You need to be without any strenous activity until cleared by your physician. Would recommend repeat imaging of you liver in 1-2 weeks to reevaluate liver laceration. If having any issues before that be seen at that time. Continue with recommendatoins from Dr. Bryan for your knee. Activity as Tolerated: No Discharge Diet: Regular Diet Other Inst to Patient Follow up Appt: Follow up with your doctor in 12-14 days for jaya to be removed. You need to be without any strenuous activity until cleared by your physician. Would recommend repeat imaging of you liver in 1-2 weeks to reevaluate liver laceration. If having any issues before that be seen at that time. Continue with recommendations from Dr. Bryan for your knee. Instructions: No lifting greater than 10 pounds. No strenuous activity. May shower in 24 hours, no tub bath or soaking. Use incentive spirometer at home as directed. No Smoking Skin/Wound Care: Keep areas clean and dry. Symptoms to Report: Appetite Changes, Extremity Discoloration, Numbness/Tingling, Swelling Increased, Bleeding Excessive, Eyesight Changes, Pain Increased, Urine Color Change, Constipation(Persistent), Fever over 101 degree F, Pain/Pressure in chest, Urinating Difficulty, Cough Up/Vomit Blood, Heart Beat Irreg/Pounding, Pain/Pressure in jaw, Vaginal Bleeding Increase, Cramps in feet or legs, Lightheadedness, Pain/Pressure in shoulder, Diarrhea(Persistent), Memory Changes Suddenly, Questions/Concerns, Weight gain consecutive days, Dizziness/Fainting, Nausea/Vomiting, Shortness of Breath, Weight gain over 2 pounds If questions or concerns contact your physician Or seek help at emergency department. EDEN CASTELLANOS DO Mar 22, 2021 13:37
--- NOTE | 2021-03-23 22:38 | DISCHARGE SUMMARY ---
DATE OF SERVICE: ADMITTING PHYSICIAN: Eden Wang DO CONSULTING PHYSICIAN: Kody Bryan MD ADMITTING DIAGNOSES: Fall from standing height; right hepatic lesion, indeterminate cause; questionable liver laceration; left knee laceration and pain; right hand abrasion. DISCHARGE DIAGNOSES: Fall from standing height, liver laceration, left knee laceration pain, right hand abrasion. HOSPITAL COURSE: The patient is a 21-year-old female who was running a track field meet and tripped over a median which causes her to fall. She was brought to the Emergency Department for further evaluation. The patient had a left knee lacerations already been repaired. She had a right hand abrasion. She had no loss of consciousness. On CT scan of the chest, abdomen and pelvis, there was indeterminate right hepatic lesion, felt to likely be a liver laceration. The patient was having fairly significant left knee pain; therefore, orthopedic consultation was obtained. The patient was placed on bed rest. She continued to have her hemoglobin followed, which remains stable. She had an MRI performed for further evaluation of the liver, which demonstrated the area of diminished density in the right lobe of the liver was seen on recent CT of the abdomen was again evident, did not appear to have changed. No abnormal enhancement to suggest neoplastic features and this appears to be consistent with recent trauma. Her left knee pain improved. The patient was able to be discharged home on 03/22/2021 with discharge instructions. Please see discharge instructions in the computer for further information. The patient was instructed not have any significant activity until cleared by physician at home. We would also recommend repeat imaging of her liver in one to two weeks. If she has any change instructed to be reevaluated at that time. Job ID: [id number] DocumentID: [id number] Dictated Date: 03/23/2021 16:40:06 Oil Well Fishing Tool Operator Date: 03/23/2021 22:37:45 Dictated By: EDEN WANG DO
== END 2021-03-22 14:50 | disposition home or self-care (01) | DRG 908 ==
LOC: ER 20:02 → 4TH 22:15
PROVIDERS: ADMIT Surgery; ATTEND Surgery
PROC: 0LQR0ZZ Repair Left Knee Tendon, Open Approach (ICD-10-PCS; principal; 2021-03-20)
PROC: 8E0ZXY6 Isolation (ICD-10-PCS; 2021-03-20)
DX: S81.022A Laceration with foreign body, left knee, initial encounter (principal); S36.113A Laceration of liver, unspecified degree, initial encounter; S30.811A Abrasion of abdominal wall, initial encounter; S60.511A Abrasion of right hand, initial encounter; F17.210 Nicotine dependence, cigarettes, uncomplicated; W01.198A Fall on same level from slipping, tripping and stumbling with subsequent striking against other object, initial encounter; Y93.02 Activity, running; Z23 Encounter for immunization
CPT/HCPCS: 36415; 71045; 71260; 73562; 74177; 74183; 80048; 80053; 81000; 82150; 83690; 84703; 85014; 85018; 85025; 90715; 93041